=== PATIENT | female | born 1970 | race Caucasian/White ===

== ENCOUNTER 2016-08-02 12:29 | Emergency (ER) | payer OTHER ==
[2016-08-02] MEDS ORDERED: IBUPROFEN 200 MG TAB PO ONE (12:54)
[2016-08-02] MEDS ORDERED: NS 1,000 ML IV ONE ×2 (13:11)
--- NOTE | 2016-08-02 13:14 | EDPHY ---
H & P Time Seen by Provider: 08/02/16 13:04 HPI/ROS: Chief complaint. Sore throat 46-year-old female insulin-dependent diabetic with sore throat for 3 days. Subjective fever, night sweats and chills. Achy. She has been exposed to strep. No cough, shortness of breath, abdominal pain or vomiting. Decreased p.o. intake. When she has checked her blood sugar over the last several days it is in the high 200s. HPI. ROS Constitutional. Subjective fever and chills Eyes. no problems with vision ENT. Sore throat Cardiovascular. no chest pain Respiratory. no shortness of breath, no cough Abdominal. no abdominal pain, no nausea/vomiting, no diarrhea . no problems urinating MS. Achy Skin. no rash Lymph. no swollen glands Neuro. no headache, no dizziness, no difficulty walking or with speech Past Medical/Surgical History: Insulin-dependent diabetes, hypertension, GERD Social History: Single, nonsmoker, no alcohol Smoking Status: Never smoked Physical Exam: General Appearance: Alert well-developed female moderate distress vital signs significant for heart rate 118 Eyes: Pupils equal and round no pallor or injection. ENT, tympanic membranes are normal. Pharynx injected with some exudate. No sign of peritonsillar abscess Respiratory: There are no retractions, lungs are clear to auscultation. Cardiovascular: Regular rate and rhythm. Gastrointestinal: Abdomen is soft and nontender, no masses, bowel sounds normal. Neurological: Awake and alert, sensory and motor exams grossly normal. Skin: Warm and dry, no rashes. Musculoskeletal: Neck is supple nontender. Extremities symmetrical, full range of motion. Psychiatric: Patient is oriented X 3, there is no agitation. Constitutional: Initial Vital Signs Temperature (C) 36.6 C 08/02/16 12:45 Heart Rate 118 H 08/02/16 12:45 Respiratory Rate 16 08/02/16 12:45 Blood Pressure 150/79 H 08/02/16 12:45 O2 Sat (%) 99 08/02/16 12:45 O2 Delivery Mode Room Air Allergies/Adverse Reactions: No Known Allergies Allergy (Verified 08/02/16 12:43) Home Medications: Medication Instructions Recorded INSULIN PUMP CARTRIDGE 08/29/09 Lisinopril 5 mg PO 09/01/12 Multivitamins [Multivitamin (OTC)] 10/27/12 Nexium 09/02/15 Penicillin V Potassium [Penicillin 500 mg PO TID #21 tab 08/02/16 VK] Medical Decision Making Procedures: IV normal saline with target 2 L ED Course/Re-evaluation: Serial evaluations. Recheck again at 2:55 p.m.. Patient feeling better. Patient and I discussed lab results, treatment plan, criteria for return importance of follow-up further evaluation. She expresses understanding and agreement Differential Diagnosis: I considered viral syndrome, strep pharyngitis, hyperglycemia and DKA, other electrolyte abnormalities - Data Points Laboratory Results: Laboratory Results 08/02/16 13:55 08/02/16 14:30 08/02/16 08/02/16 08/02/16 14:30 13:55 12:52 WBC 15.73 10^3/uL H 10^3/uL (3.80-9.50) RBC 5.18 10^6/uL 10^6/uL (4.18-5.33) Hgb 15.7 g/dL g/dL (12.6-16.3) Hct 46.1 % % (38.0-47.0) MCV 89.0 fL fL (81.5-99.8) MCH 30.3 pg pg (27.9-34.1) MCHC 34.1 g/dL g/dL (32.4-36.7) RDW 11.8 % % (11.5-15.2) Plt Count 245 10^3/uL 10^3/uL (150-400) MPV 10.0 fL fL (8.7-11.7) Neut % (Auto) 80.6 % H % (39.3-74.2) Lymph % (Auto) 10.9 % L % (15.0-45.0) [place] % (Auto) 7.4 % % (4.5-13.0) Eos % (Auto) 0.3 % L % (0.6-7.6) Baso % (Auto) 0.4 % % (0.3-1.7) Nucleat RBC Rel Count 0.0 % % (0.0-0.2) Absolute Neuts (auto) 12.67 10^3/uL H 10^3/uL (1.70-6.50) Absolute Lymphs (auto) 1.72 10^3/uL 10^3/uL (1.00-3.00) Absolute Monos (auto) 1.17 10^3/uL H 10^3/uL (0.30-0.80) Absolute Eos (auto) 0.04 10^3/uL 10^3/uL (0.03-0.40) Absolute Basos (auto) 0.07 10^3/uL 10^3/uL (0.02-0.10) Absolute Nucleated RBC 0.00 10^3/uL 10^3/uL (0-0.01) Immature Gran % 0.4 % % (0.0-1.1) Immature Gran # 0.06 10^3/uL 10^3/uL (0.00-0.10) Sodium 136 mEq/L mEq/L (134-144) Potassium 4.3 mEq/L mEq/L (3.5-5.2) Chloride 102 mEq/L mEq/L (97-110) Carbon Dioxide 21 mEq/l L mEq/l (22-31) Anion Gap 13 mEq/L mEq/L (8-16) BUN 7 mg/dL mg/dL (7-23) Creatinine 0.5 mg/dL L mg/dL (0.6-1.0) Estimated GFR > 60 Glucose 166 mg/dL H mg/dL (70-100) Calcium 8.4 mg/dL L mg/dL (8.5-10.4) Group A Strep Screen POSITIVE H (NEGATIVE) Medications Given: Discontinued Medications Sodium Chloride (Ns) 1,000 mls @ 0 mls/hr IV ONCE ONE PRN Reason: Wide Open Stop: 08/02/16 13:12 Last Admin: 08/02/16 14:07 Dose: 1,000 mls Ceftriaxone Sodium 1 gm/ (Sodium Chloride) 100 mls @ 200 mls/hr IV EDNOW ONE PRN Reason: Protocol Stop: 08/02/16 13:43 Last Admin: 08/02/16 14:05 Dose: 100 mls Ibuprofen (Motrin) 600 mg PO EDNOW ONE Stop: 08/02/16 12:55 Last Admin: 08/02/16 14:07 Dose: 600 mg Departure - Departure Disposition: Home, Routine, Self-Care Clinical Impression: Acute streptococcal pharyngitis Condition: Good Instructions: Strep Throat (ED) Additional Instructions: Drink plenty of fluids and stay hydrated. Ibuprofen 600 mg every 6 hours for fever and pain. Penicillin as antibiotic. Return for worsening symptoms. Recheck in 2 days if not improved Referrals: Kaela Molina MD [Primary Care Provider] - 2-3 days, if not improved Prescriptions: Penicillin V Potassium [Penicillin VK] 500 mg PO TID #21 tab
[2016-08-02 14:00] LABS: % IMMATURE GRANULYOCYTES 0.4 % (0.0-1.1); ABSOLUTE IMMATURE GRANULOCYTES 0.06 10^3/uL (0.00-0.10); ADD DIFF? NO; ADD MORPH? NO; ADD SCAN? NO; ATYPICAL LYMPHOCYTE FLAG 0 (0-99); FRAGMENT RBC FLAG 0 (0-99); HEMATOCRIT 46.1 % (38.0-47.0); HEMOGLOBIN 15.7 g/dL (12.6-16.3); LEFT SHIFT FLG 0 (0-99); LIPEMIA HEMOLYSIS FLAG 90 (0-99); MEAN CELL HEMOGLOBIN 30.3 pg (27.9-34.1); MEAN CELL HEMOGLOBIN CONCENTR. 34.1 g/dL (32.4-36.7); PLATELET CLUMPS FLAG 10 (0-99); PLATELET COUNT 245 10^3/uL (150-400); RED BLOOD CELL COUNT 5.18 10^6/uL (4.18-5.33); RED CELL DISTRIBUTION WIDTH 11.8 % (11.5-15.2)
[2016-08-02 14:50] LABS: ANION GAP 13 mEq/L (8-16); CALCIUM 8.4 mg/dL (8.5-10.4); CARBON DIOXIDE 21 mEq/l (22-31); CHLORIDE 102 mEq/L (97-110); CREATININE 0.5 mg/dL (0.6-1.0); GLOMERULAR FILTRATION RATE > 60; GLUCOSE 166 mg/dL (70-100); POTASSIUM 4.3 mEq/L (3.5-5.2); SODIUM 136 mEq/L (134-144)
[2016-08-02 15:34] VITALS: BP 145/87; PULSE 74; RESP 18; TEMP 98; O2SAT 95
== END 2016-08-02 15:33 | disposition home or self-care (01) ==
LOC: CED 12:29
DX: J02.0 Streptococcal pharyngitis (principal); E11.9 Type 2 diabetes mellitus without complications; I10 Essential (primary) hypertension; Z79.4 Long term (current) use of insulin
CPT/HCPCS: 80048-PO; 85025-PO; 87880-PO; 96365; J0696

== ENCOUNTER → 2016-08-17 | Outpatient (CLI) | payer OTHER | LOC: BMCIMAGING 09:22 | PROVIDERS: ATTEND Internal Medicine | DX: Z12.31 Encounter for screening mammogram for malignant neoplasm of breast (principal); Z80.3 Family history of malignant neoplasm of breast | CPT/HCPCS: G0202 ==

== ENCOUNTER → 2017-08-22 | Outpatient (CLI) | payer OTHER | LOC: CIMAGING 10:40 | PROVIDERS: ATTEND Internal Medicine | DX: Z12.31 Encounter for screening mammogram for malignant neoplasm of breast (principal); Z80.3 Family history of malignant neoplasm of breast ==

== ENCOUNTER → 2017-09-20 | Outpatient (CLI) | payer OTHER | LOC: CIMAGING 13:02 | PROVIDERS: ATTEND Internal Medicine | DX: N60.01 Solitary cyst of right breast (principal) | CPT/HCPCS: 76641-PO ==

== ENCOUNTER → 2018-08-30 | Outpatient (CLI) | payer OTHER | LOC: CIMAGING 09:51 ==